=== PATIENT | female | born 1970 | race Caucasian/White ===

== ENCOUNTER 2016-09-19 08:09 | Inpatient (IN) | payer OTHER ==
[2016-09-19 08:19] VITALS: BMI 28.2
[2016-09-19] MEDS ORDERED: MORPHINE 4 MG/ML INJECTION IV ONE (08:22)
[2016-09-19] MEDS ORDERED: NS 1,000 ML IV ONE (08:22)
[2016-09-19] MEDS ORDERED: ONDANSETRON HCL 4 MG/2 ML VIAL IV ONE (08:22)
--- NOTE | 2016-09-19 08:31 | EDPRACDOC ---
- General Information Chief Complaint: Abdominal Pain Stated Complaint: N/V/ABD PAIN Time Seen by Provider: 09/19/16 08:18 Information Source: Patient Mode Of Arrival: Car Home Medications: Home Medications Ondansetron HCl [Zofran] 4 mg PO Q6H PRN #20 tab 12/10/15 Ranitidine [Zantac] 150 mg PO DAILY 09/19/16 Allergies/Adverse Reactions: Allergies Allergy/AdvReac Type Severity Reaction Status Date / Time No Known Allergies Allergy Verified 09/19/16 08:14 - History of Present Illness Onset: 3 weeks HPI: PT HAS HAD ABD PAIN FOR ABOUT 3 WEEKS. PT SAID THAT HER PCP ORDERED AN US ON 09/16. SHE WAS TOLD THAT SHE HAD GALLSTONES. PT SAID THAT PAIN AND NAUSEA HAS GOTTEN REALLY BAD FOR THE LAST DAY. PT ALSO FEELS LIKE HER ABDOMEN IS SWELLING. Pain Location: Reports: Epigastric, RUQ Pain Context: Reports: Spontaneous Pain Severity: Moderate Pain Quality: Reports: Sharp Pain Radiation: Reports: No Radiation : No (tubal) Adult Abdominal History: Reports: Abdominal Surgery Female Abdominal History: Denies: Abdominal Surgery Modifying Factors: improves with: Nothing Female Associated Signs & Symptoms: Reports: Nausea, Vomiting Oral Intake: Decreased Urinary Output: Decreased - Treatment Prior to ED Arrival Reported Medications/Treatment CHILD CARE SITTER Treated With Medication CHILD CARE SITTER YES Medications CHILD CARE SITTER (Medication/ zantac Dose/Time) ED Past Medical History - History Reviewed No Past Medical History: Yes Patient has no past medical history - Patient Medical History Surgical History: Reports: Other (BTL) - Social Medical History Smoking Status: Never smoker ETOH: None Substance Abuse: None Lives With: Spouse Lives In: Home EDM Review of Systems - Review of Systems ROS Negative Except as Marked: Yes All systems reviewed and were negative except as marked Gastrointestinal: Nausea, Pain, Vomiting - Physical Exam Constitutional: Alert (Awake), Distress Oriented to: Time, Person, Place Last recorded Vital Signs: Last Vital Signs Temp 97.6 F 09/19/16 08:15 Pulse 73 09/19/16 08:34 Resp 16 09/19/16 08:34 BP 135/72 09/19/16 08:34 Pulse Ox 100 09/19/16 08:34 Oxygen Pulse Oxygen Saturation 100 O2 Device Room Air Oxygen Flow Rate Fraction of Inspired Oxygen ( FIO2) - HEENT Head: Normal ( normocephalic) Eye Exam: Normal (PERRL, EOMI, Sclera white) Oropharynx: Normal (Pharynx:Moist without exudate,Gums-no swelling) ENT EAC: Normal TMJ: Normal Nose: No Symptoms Reported (septum midline) Neck: Normal (FROM, trachea at midline) - Respiratory/Cardiovascular Respiratory: Normal - CTA (BBS clear to auscultation without adventitious sounds ) Cardiovascular: Normal (RRR without murmur, gallop or rub) - GI Auscultation: Normal (NABS) Palpation: Normal (Soft,No rebound or guarding, non distended) Tenderness: Moderate, RUQ, Epigastric Alonso's Sign: Positive - Musculoskeletal Back: Normal (Non-Tender) Extremities: Normal (Normal tone, Pulses 2+ No cyanosis or edema, FROM) - Integumentary Skin: Normal, Warm, Dry Lymphatics: Normal (no adenopathy) - Neurologic Memory Impaired: Normal Motor Function: Normal (Normal tone, Pulses 2+ No cyanosis or edema, FROM) Cranial Nerve: Normal (CN II-X11 intact sensation, strength 5/5) Cerebellar: Normal Mood Description: Normal Thought: Coherent Perception: Normal - Re-evaluation Re-evaluation 1 Re-evaluation Time: 09:03 (STILL WITH PAIN) - Results 09/19/16 08:27 09/19/16 08:27 WBC 5.5 xk/uL (3.8-10.8) 09/19/16 08:27 RBC 4.43 xM/uL (4.20-5.40) 09/19/16 08:27 Hgb 10.6 g/dL (12.0-16.0) L 09/19/16 08:27 Hct 34.0 % (36-47) L 09/19/16 08:27 MCV 77 fL (81-99) L 09/19/16 08:27 MCH 23.8 pg (27-32) L 09/19/16 08:27 MCHC 31.1 g/dl (33-36) L 09/19/16 08:27 RDW 16.6 % (11.5-14.5) H 09/19/16 08:27 Plt Count 325 xk/uL (130-400) 09/19/16 08: MPV 8.1 fL (7.4-10.4) 09/19/16 08:27 Sodium 144 mEq/L (137-146) 09/19/16 08:27 Potassium 3.9 mEq/L (3.5-5.1) 09/19/16 08:27 Chloride 106 mEq/L (98-107) 09/19/16 08:27 Carbon Dioxide 26 mMOL/L (22-33) 09/19/16 08:27 Anion Gap 16 mEq/L (8-16) 09/19/16 08:27 BUN 13 MG/DL (7-17) 09/19/16 08:27 Creatinine 0.60 MG/DL (0.52-1.04) 09/19/16 08:27 Estimated GFR (MDRD) > 60 mL/min (>=60) 09/19/16 08:27 Glucose 97 MG/DL (70-99) 09/19/16 08:27 Calculated Osmolality 277 MOs/Kg (270-290) 09/19/16 08:27 Calcium 9.1 MG/DL (8.4-10.2) 09/19/16 08:27 Total Bilirubin 0.5 MG/DL (0.2-1.3) 09/19/16 08:27 AST 15 IU/L (14-36) 09/19/16 08:27 ALT 23 IU/L (9-52) 09/19/16 08:27 Alkaline Phosphatase 99 IU/L (38-126) 09/19/16 08:27 Total Protein 8.1 G/DL (6.3-8.2) 09/19/16 08:27 Albumin 4.5 G/DL (3.5-5.0) 09/19/16 08:27 Lipase 99 U/L (23-300) 09/19/16 08:27 Urine Test Neg (NEGATIVE) 09/19/16 08:41 Lab Results 09/19/16 09/19/16 09/19/16 08:41 08:27 08:27 WBC 5.5 RBC 4.43 Hgb 10.6 L Hct 34.0 L MCV 77 L MCH 23.8 L MCHC 31.1 L RDW 16.6 H Plt Count 325 MPV 8.1 Sodium 144 Potassium 3.9 Chloride 106 Carbon Dioxide 26 Anion Gap 16 BUN 13 Creatinine 0.60 Estimated GFR (MDRD) > 60 Glucose 97 Calculated Osmolality 277 Calcium 9.1 Total Bilirubin 0.5 AST 15 ALT 23 Alkaline Phosphatase 99 Total Protein 8.1 Albumin 4.5 Lipase 99 Urine Test Neg - Departure Yes I personally saw and evaluated the patient. Disposition: Admit IP To This Hospital Condition: Fair Final Diagnosis: Cholecystitis, acute with cholelithiasis Instructions: Acute Abdominal Pain (ED) Education/Counseling Given To: Patient, Family Member Education/Counseling Given Regarding: Diagnosis, Treatment Decision to Admit Time: 09:04 Decision to admit date: 09/19/16 Decision to admit: from ED - Physician Consulted Surgery Provider Called: Jatinder Garcia
[2016-09-19 08:40] LABS: AUTOMATED BASOPHIL 0.4 % (0-2); AUTOMATED EOSINOPHIL 0.5 % (0-5); AUTOMATED LYMPH 35.2 % (17-44); AUTOMATED MONOCYTE 8.4 % (3-10); AUTOMATED NEUTROPHIL 55.5 % (45-76); MPV 8.1 fL (7.4-10.4)
[2016-09-19 08:50] LABS: BLOOD UREA NITROGEN 13 MG/DL (7-17); CALCIUM 9.1 MG/DL (8.4-10.2); CALCULATED OSMOLALITY 277 MOs/Kg (270-290); CHLORIDE 106 mEq/L (98-107); GLUCOSE 97 MG/DL (70-99); SODIUM LEVEL 144 mEq/L (137-146); TOTAL PROTEIN 8.1 G/DL (6.3-8.2)
[2016-09-19 08:56] LABS: LEUKOCYTES/URINE NEG (NEGATIVE); NITRITE/URINE NEG (NEGATIVE); RBC/URINE 0-2 (0-5); URINE OCCULT BLOOD NEG (NEG/TRACE); WBC/URINE 0-2 (0-5)
[2016-09-19] MEDS ORDERED: HYDROmorphone 1 MG INJECTION IV ONE (08:57)
[2016-09-19] MEDS ORDERED: CEFOXITIN 1 GM in D5W 100 ML IV ONE (08:57)
[2016-09-19] MEDS ORDERED: Non-Formulary Medication ITEM (Ondansetron Hcl [Zofran] 4 MG) PO PRN (09:50)
[2016-09-19] MEDS ORDERED: ONDANSETRON HCL 4 MG ODT TAB PO PRN (10:06)
[2016-09-19] MEDS ORDERED: ACETAMINOPHEN 650 MG SUPP PR PRN (10:32)
[2016-09-19] MEDS ORDERED: ONDANSETRON HCL 4 MG/2 ML VIAL IV PRN (10:32)
[2016-09-19] MEDS ORDERED: IBUPROFEN 600 MG TAB PO PRN (10:32)
[2016-09-19] MEDS ORDERED: MAGNESIUM HYDROXIDE 30 ML BOTTLE PO PRN (10:32)
[2016-09-19] MEDS ORDERED: Albuterol/Ipratropium Neb 3 ML NEB NEB PRN (10:32)
[2016-09-19] MEDS ORDERED: Aluminum;Magnesium;Simethicone 30 ML UDC PO PRN (10:32)
[2016-09-19] MEDS ORDERED: LORAZEPAM 0.5 MG TAB PO PRN (10:32)
[2016-09-19] MEDS ORDERED: ACETAMINOPHEN 325 MG/TAB TABLET PO PRN (10:32)
[2016-09-19] MEDS ORDERED: DIPHENHYDRAMINE 25 MG CAP PO PRN (10:32)
[2016-09-19] MEDS ORDERED: PROMETHAZINE 25 MG/ML VIAL IV PRN (10:32)
[2016-09-19] MEDS ORDERED: SIMETHICONE 80 MG TAB PO PRN (10:32)
[2016-09-19] MEDS ORDERED: RANITIDINE 150 MG TAB PO SCH (11:00)
[2016-09-19] MEDS ORDERED: Vaccine Screening Complete SCH (13:00)
[2016-09-19] MEDS: OXYCODONE HCL 5 MG TABLET PO PRN (14:11)
[2016-09-19] MEDS: MORPHINE 2 MG/ML INJECTION IV PRN ×3 (15:28→22:28)
--- NOTE | 2016-09-19 16:21 | HISTPHYS ---
- Chief Complaint epigastric abdominal pain - History of Present Illness This is a 45 year old female that began having nausea, diarrhea and abdominal pain three weeks ago. She had markedly more severe pain last night, prompting her to go to the emergency department. She developed worsening nausea and vomiting. She reports that she also has increased heartburn. - Medical History Cardiac History: Denies: No Significant History, Coronary Artery Disease, Atrial Fibrillation, Hypertension, Congestive Heart Failure, Heart Attack, Cardiac Catheterization, CABG, Stress Test, Hypercholesterolemia, Internal Defibrillator, Pacemaker, Cardiomyopathy, Valvular Heart Disease, Syncope, SVT, Other Respiratory History: Denies: No Significant History, Asthma, COPD, Bronchitis, Asbestosis, Aspiration Pneumonia, Cough, Chronic Bronchitis, Pneumonia, Emphysema, Pulmonary Embolism, Other GI/ History: Denies: No Significant History, Renal Disease, Renal Failure, Renal (Kidney) Cancer, Kidney (Renal Surgery), Urinary Tract Infection, Kidney Stones, Liver Failure, Gastroesophageal Reflux, Ulcer, IBD, Diverticulosis, Pancreatitis, BPH, PMH GI Yes/No Other Musculoskeletal History: Denies: No Significant History, Arthritis, Gout, Rheumatoid Arthritis, Osteoarthritis, Other Systemic History: Denies: No Significant History, Cancer, Anemia, Diabetes, Hyperthyroidism, Hypothyroidism, HIV, Lupus, Other Neurological History: Denies: No Significant History, Cerebrovascular Accident, Seizures, Migraine, Dementia, Epilepsy, Guillian-Mosby Syndrome, Parkinson's, Metabolic encephalopathy, Multiple Sclerosis, Myasthenia Gravis, Toxic Encephalopathy, Other - Surgical History Reports: Other (bilateral tubal ligation. wrist surgery for cyst.) - Medictions/Allergies Allergies No Known Allergies Allergy (Verified 09/19/16 08:14) Current Medication List: Reviewed Home Medications Ondansetron HCl [Zofran] 4 mg PO Q6H PRN #20 tab 12/10/15 Ranitidine [Zantac] 150 mg PO DAILY 09/19/16 - Family History Denies: No Significant History, Hypertension, Diabetes, Cancer, Stroke, Cardiac Disorders, Respiratory Disorders, Renal Disease, Blood Disorders, Other - Social History Travel Outside of [place] in the Last 3 Months?: No Lives: With Family Smoking Status: Never smoker Social History: Denies: Amphetamine Use, Alcohol Use, Barbiturate Use, Benzodiazipine Use, Cocaine Use, Heroin Use, Marijuana Use, Methadone Use, MDMA (Ecstasy) Use, Substance Use Disorder - Review of Systems Yes All systems reviewed and were negative except as marked (twelve systems reviewed with the patient.) - Physical Exam Vital Signs: Initial Vitals Temperature 97.6 F 09/19/16 08:15 Pulse Rate 79 09/19/16 08:15 Respiratory Rate 18 09/19/16 08:15 Blood Pressure 130/73 09/19/16 08:15 Pulse Oxygen Saturation 100 09/19/16 08:15 Constitutional: Alert (Awake, Fully oriented. Normal and appropriate affect.Well appearing. Well nourished.), No apparent distress Oriented to: Time, Person, Place - HEENT Head: Normal (normocephalic, atraumatic.), Other (No cervical lymphadenopathy. No supraclavicular lymphadenopathy. Neck: No palpable mass, supple , trachea midline.) Eye: Normal (pupils equal, reactive to light, and round; EOMI, Sclera white) Oropharynx: Normal (Pharynx: Moist without exudate,Gums-no swelling, No oropharyngeal lesions or erythema, Mucous membranes are dry.) ENT EAC: Normal (No oropharyngeal lesions or erythema. Mucous membranes are dry. ) TMJ: Normal Nose: No Symptoms Reported (septum midline, Nares patent, without discharge or bleeding.) Respiratory: Normal - CTA (Clear to auscultation bilaterally. No wheezing, rales , rhonchi. Chest wall movements are symmetric. No use of accessory muscles to breathe.) Cardiovascular: Normal (RRR , Normal S1, S2. No murmurs, rubs, or gallops. PMI non-displaced. Carotids: no carotid bruits. No bradycardia or tachycardia. DP pulses 2+ bilaterally.) - GI Auscultation: Normal (normal active sounds) Palpation: Normal (Soft,non distended,nontender. No hepatosplenomegaly.) Tenderness: Moderate, RUQ, Epigastric Alonso's Sign: Negative - Exam Deferred: Yes - Musculoskeletal Back: Normal (Non-Tender) Extremities: Normal (Normal tone, DP pulses 2+ bilaterally, No cyanosis or edema bilaterally, FROM bilaterally.) - Integumentary Skin: Normal (Clean, dry, and intact. No rashes. No lesions.) Lymphatics: Normal (No cervical lymphadenopathy. No supraclavicular lymphadenopathy.) - Neurologic Memory Impaired: Normal Motor Function: Normal (Motor 5/5 throughout.Normal tone, Pulses 2+ No cyanosis or edema, FROM) Cranial Nerve: Normal (CN II-XII intact sensation, strength 5/5) Cerebellar: Normal (Babinski: toes downgoing bilaterally. Intact Finger to nose. Sensory grossly intact to light touch. Intact rapid alternating movements bilaterally. No pronator drift.) Mood Description: Normal (Fully oriented. Normal and appropriate affect.) Perception: Normal (Normal and appropriate affect.) - Lab Results Intake & Output 09/19/16 09/19/16 09/19/16 07:59 15:59 23:59 Intake Total 1100 Output Total 10 Balance 1090 Patient's weight 79.379 kg 09/19/16 08:27 09/19/16 08:27 - Assessment/Plan (1) Cholelithiasis with chronic cholecystitis K80.10 - CALCULUS OF GALLBLADDER W CHRONIC CHOLECYST W/O OBSTRUCTION Chronic Present on Admission: Yes gallbladder Comment: We will plan for laparoscopic cholecystectomy with intraoperative cholangiogram , possible open incision. The indications, benefits and risks associated with the operation were discussed with the patient and the patient's family. All questions were answered. Informed consent was obtained. Case Care Discussed with: Patient, Family
[2016-09-19] MEDS: LR 1,000 ML IV SCH (17:06)
[2016-09-20] MEDS: MORPHINE 2 MG/ML INJECTION IV PRN ×2 (03:29→13:53)
[2016-09-20] MEDS ORDERED: CEFAZOLIN 1 GM VIAL IV ONE (06:00)
[2016-09-20] MEDS: LR 1,000 ML IV SCH ×2 (06:30→12:15)
[2016-09-20] MEDS ORDERED: CEFAZOLIN 1 GM VIAL ONE (06:51)
[2016-09-20] MEDS ORDERED: ISOVUE-300 (61%) 50 ML ONE (06:58)
[2016-09-20] MEDS ORDERED: BUPIVACAINE 0.5% 30 ML VIAL ONE (06:58)
--- NOTE | 2016-09-20 07:15 | HIM.ANES ---
Anesthesia Evaluation & Plan Diagnoses: acute cholecystitis Consented Procedure: lap dangelo - Focused Review of Systems No Past Medical History: Yes Patient has no past medical history Now: No (tubal) Cardiac History: No: Hx Hypertension, Hx Heart Attack, Hx Cardiac Catheterization, Hx Pacemaker, Hx Congestive Heart Failure, Hx Coronary Artery Bypass Graft, Hx of SVT HEENT: No: Loose/Decaying Teeth Respiratory: No: Hx Asthma, Hx Emphysema, Hx Chronic Obstructive Pulmonary Disease (COPD) , Hx Pneumonia Gastrointestinal: Yes: Hx Gastroesophageal Reflux Disease No: Hx Pancreatitis, Hx Diverticulosis Genitourinary: No: Hx Renal Disease, Hx Renal Failure Neurological/Musculoskeletal: No: HX Cerebrovascular Accident, Hx Dementia, Hx Seizures, Hx Syncope Psychological: No Hx Depression Endocrine: No: Hx Hyperthyroidism, Hx Hypothyroidism Blood/Autoimmune: No: Hx Anemia, Hx AIDS, Hx Hepatitis (type) Smoking Status: Never smoker Past Social History: Denies: Amphetamine Use, Alcohol Use, Barbiturate Use, Benzodiazipine Use, Cocaine Use, Heroin Use, Marijuana Use, Methadone Use, MDMA (Ecstasy) Use, Substance Use Disorder Alcohol use: None Surgical History: Yes: Other (bilateral tubal ligation. wrist surgery for cyst. ) No: CABG - Focused Physical Exam NPO since: 09/20/2016 00:00 Mallampati: Class II Thyromental Distance: Greater than 3 Neck: Full Range of Motion Dental: Normal - no significant findings Cardiovascular/Chest: Normal Respiratory: Lungs clear Any problems with anesthesia, including nausea and vomiting?: No Any relatives with a history of Malignant Hyperthermia?: No Does patient have a history of Malignant Hyperthermia?: No Beta Quan given (if appropriate): N/A Does the patient have a history of Motion Sickness-: No Other: Problem List Problem Status Onset Cholecystitis, acute with cholelithiasis Acute Cholelithiasis with chronic cholecystitis Chronic PT/PTT/INR/ Urine Test Neg (NEGATIVE) 09/19/16 08:41 Allergies Allergy/AdvReac Type Severity Reaction Status Date / Time No Known Allergies Allergy Verified 09/19/16 08:14 Home Medications Medication Instructions Recorded Last Taken Type Ondansetron HCl [Zofran] 4 mg PO Q6H PRN #20 tab 12/10/15 09/18/16 Rx Ranitidine [Zantac] 150 mg PO DAILY 09/19/16 09/17/16 History Vital Signs Temperature 97.9 F 09/20/16 05:52 Pulse Rate 75 09/20/16 05:52 Respiratory Rate 16 09/20/16 05:52 Blood Pressure 134/76 09/20/16 05:52 Pulse Oxygen Saturation 98 09/20/16 05:52 METS - Level of Activity: Climbing stairs(1 flight),walking level ground, running short distance - Anesthetic Plan Anesthesia Type: General ASA Class: 2 -: I have examined this patient and reviewed the medical record. The patient has been assessed prior to anesthesia. Risks and benefits of anesthesia and anesthetic technique options have been discussed and all questions answered. The patient accepts the risk and desires me to proceed with the planned anesthetic.
[2016-09-20] MEDS ORDERED: LABETALOL 20 MG/4 ML SYRINGE IV PRN (07:16)
[2016-09-20] MEDS ORDERED: MEPERIDINE 25 MG/ML TUBEX IV PRN (07:16)
[2016-09-20] MEDS ORDERED: FENTANYL 100 MCG/2 ML VIAL IV PRN ×2 (07:16)
[2016-09-20] MEDS ORDERED: ONDANSETRON HCL 4 MG ODT TAB PO PRN (07:16)
[2016-09-20] MEDS ORDERED: ONDANSETRON HCL 4 MG/2 ML VIAL IV PRN (07:16)
[2016-09-20] MEDS ORDERED: HYDROmorphone 1 MG INJECTION IV PRN ×2 (07:16)
[2016-09-20] MEDS ORDERED: hydrALAZINE 20 MG/ML VIAL IV PRN (07:16)
[2016-09-20] MEDS ORDERED: FLU VACCINE (Afluria) 0.5 ML DOSE IM ONE (08:00)
--- NOTE | 2016-09-20 08:32 | HIMOPRPT ---
DATE OF PROCEDURE: 09/20/16 Preoperative diagnosis: Cholelithiasis with chronic cholecystitis Postoperative diagnosis: Cholelithiasis with chronic cholecystitis, final pathology pending Procedure: Intraoperative cholangiography under fluoroscopic guidance Surgeon: Jatinder Garcia DO Anesthesia: General ANESTHESIOLOGIST: Dr. Kemi Bloom MD Blood loss: None Packings and drains: None Complications: None Operative findings and technique: During the course of laparoscopic cholecystectomy by Dr. Garcia, intraoperative cholangiography was performed under fluoroscopic guidance. Fluoroscopic images reveal a cholangiocatheter on the infundibulum of the gallbladder. Contrast dye is noted to fill the infundibulum. Contrast dye is noted to proceed down a spiraling cystic duct into a normal caliber common bile duct. Contrast dye flows antegrade down the common bile duct and into the duodenum. Retrograde filling of the hepatic radicles is noted as well. There is no evidence of common bile duct obstruction or lesion. Impression: Normal intraoperative cholangiography without any evidence of retained common bile duct stone, stricture, or other lesion.
--- NOTE | 2016-09-20 08:32 | HIMOPRPT ---
DATE OF PROCEDURE: 09/20/16 PREOPERATIVE DIAGNOSIS: Chronic cholecystitis with cholelithiasis. POSTOPERATIVE DIAGNOSIS: Chronic cholecystitis with cholelithiasis. PROCEDURE: Laparoscopic cholecystectomy with intraoperative cholangiogram SURGEON: Jatinder Garcia DO. ANESTHESIA: General endotracheal. ANESTHESIOLOGIST: Dr. Kemi Bloom MD SPECIMEN: Gallbladder and contents. SPONGE COUNT: Correct. PACKINGS AND DRAINS: None. PATIENT CONDITION: Stable. ESTIMATED BLOOD LOSS: 5mL INDICATIONS: This is a 45-year-old female with right upper quadrant and epigastric abdominal pain. Ultrasound demonstrated gallstones. It was recommend to this patient, laparoscopic cholecystectomy with intraoperative cholangiogram , possible open incision. The risks associated with operation were discussed with the patient and the patient's family in detail. These risks include, but not limited to bleeding, infection, port site herniation, injury to intra- abdominal blood vessels, injury to small and large intestine, deep vein thrombosis, resultant pulmonary embolism, perioperative cardiac and respiratory morbidity and mortality, injury to common bile duct resulting in need for reoperation, injury to intrahepatic bile duct resulting in need for percutaneous drainage, possible endoscopic retrograde cholangiopancreatography. All questions were answered and informed consent was obtained. FINDINGS: Gallbladder was slightly distended. Moderate omental adhesions of the gallbladder. On intraoperative cholangiogram, no evidence of retained stone or obstruction. OPERATIVE AND TECHNIQUE: With consent, the patient was taken to the operative suite at [facility] and placed in supine position. General anesthesia was induced. Having successful completion of this, the anterior abdomen was sterilely prepped and draped in usual fashion. All members of surgical team were in agreement of correct patient and correct procedure. Curvilinear incision was made inferior to the umbilicus, carried down to the fascial layers entering the peritoneal cavity under direct visualization. It was insufflated to 15 mmHg and kept at or below this pressure at all times during the course of surgery. A total of 3 accessory ports were placed in the right upper quadrant each 5 mm in size, each placed under laparoscopic visualization. Gallbladder was grasped and elevated. Omental adhesions were removed utilizing gentle blunt dissection staying very close to the gallbladder. Cystic duct and cystic artery were circumferentially isolated. Gallbladder cystic duct junction was clearly visualized. Intraoperative cholangiogram was performed with Foster cholangiocatheter, findings as described above. Once again, the cystic duct circumferentially isolated. Three metallic clips were placed across then transected, leaving 2 on the stump and 1 on the specimen. Cystic artery was circumferentially isolated. Three metallic placed across were then transected, leaving 2 on the stump and 1 on the specimen. Small bridging vein to the cystic duct was identified, this was clipped. Hemostasis was excellent. Gallbladder was removed from liver bed utilizing electrocautery, placed in Endobag, removed the body and passed off as specimen. Right upper quadrant was vigorously irrigated and aspirated dry. Clips were visualized in place. No evidence of arterial or venous bleeding. No evidence of bile duct leakage. Accessory port sites were hemostatic on removal. CO2 gas was allowed to escape in the peritoneal cavity. Fascia was closed with [id number] 0 Vicryl suture. Skin was closed with 4-0 Monocryl subcuticular stitch. After infiltration of anesthetic, Dermabond was applied. Sterile occlusive dressing was applied over this. Anesthesia was reversed. Mrs. Stone was taken to recovery, having tolerated the procedure well.
[2016-09-20] MEDS ORDERED: PROMETHAZINE 25 MG/ML VIAL ONE (09:10)
[2016-09-20] MEDS ORDERED: FENTANYL 100 MCG/2 ML VIAL ONE (09:25)
[2016-09-20] MEDS: OXYCODONE HCL 5 MG TABLET PO PRN ×2 (11:14→18:31)
--- NOTE | 2016-09-20 11:30 | DIRPT ---
CLINICAL DATA: 45-year-old female with a history of cholelithiasis EXAM: INTRAOPERATIVE CHOLANGIOGRAM TECHNIQUE: Cholangiographic images from the C-arm fluoroscopic device were submitted for interpretation post-operatively. Please see the procedural report for the amount of contrast and the fluoroscopy time utilized. COMPARISON: Ultrasound 09/16/2016 FINDINGS: Surgical instruments project over the upper abdomen. There is cannulation of the cystic duct/gallbladder neck, with antegrade infusion of contrast. Caliber of the extrahepatic ductal system within normal limits. No large filling defect identified. Free flow of contrast across the ampulla. IMPRESSION: Intraoperative cholangiogram demonstrates extrahepatic biliary ducts of unremarkable caliber, with no large filling defect identified. Free flow of contrast across the ampulla. Please refer to the dictated operative report for full details of intraoperative findings and procedure Signed, Genaro Caro DO [facility] Electronically Signed By: Genaro Caro D.O. On: 09/20/2016 11:27
--- NOTE | 2016-09-20 12:44 | SC.ANESPOS ---
Post-Anesthesia Note LOC: Fully Awake Post-Anesthesia Assessment: Awake, Returned to Baseline, Hemodynamically Stable , Pain Control Adequate Phase I & II Recovery Complete: Yes Apparent Anesthesia Complication: No : N PACU Discharge Time: 10:20 - Vital Signs Blood Pressure: 145/79 Pulse: 64 Resp Rate: 15 O2 Sat: 100 Temp: 97.6 F - Comments Anesthesia Discharge Time Report Time 10:20
[2016-09-20 18:16] VITALS: BP 144/69; PULSE 79; TEMP 98.5
--- NOTE | 2016-09-20 19:44 | PCM.DCS92 ---
- Final/Secondary Discharge Diagnosis (1) Cholelithiasis with chronic cholecystitis Chronic K80.10 - CALCULUS OF GALLBLADDER W CHRONIC CHOLECYST W/O OBSTRUCTION Present on Admission: Yes gallbladder Discharge Disposition: Home Discharge Condition: Improved Cognitive Discharge Status: Unimpaired Fuctional Discharge Status: Independent Physician Follow up/Referrals: Mare Todd NP [Primary Care Provider] - One Week Jatinder Garcia DO [Staff Physician] - One Week New Prescriptions: Oxycodone Immediate Release [Oxy-Ir] 5 mg PO Q6H PRN #40 tab PRN Reason: Pain Promethazine [Phenergan] 25 mg PO Q4H PRN #30 tab PRN Reason: Nausea/Vomiting Diet at Discharge: As Tolerated, Regular Activity: No Heavy Lifting, No Driving (No driving while taking the prescription analgesics.) Call Office For: Worsening Symptoms, Wound is Draining Pus, Fever over 101 F, Wound is Painful, Wound is Red, Pain Uncontrolled By Meds, Other (See Details) ( Chest pain or difficulty breathing) Discontinue use of:: Alcohol, All Illegal Substances, All Types of Tobacco - DC Summary Notes Hospital Course Note:: Discharge summary on patient named ESPERANZA BEASLEY admitted to [facility] on 09/19/16 by Jatinder Garcia DO. The patient was diagnosed with cholecystitis with cholelithiasis. She underwent laparoscopic cholecystectomy. Please see operative report for full details. Postoperatively , her diet and activity were slowly advanced, which she was able to tolerate. She was stable for discharge. Date of discharge is 09/20/16. Discharge condition: stable Final discharge diagnosis: cholecystitis with cholelithiasis Wound Care Surgical Site: Yes May Shower Starting:: 09/21/16 Remove Clear Dressing In How Many Days?: 7 Remove Gauze Dressing in How Many Days?: 7 Ability To Perform Care (if applicable): Yes - Physical Exam Vital Signs: Initial Vitals Temperature 97.6 F 09/19/16 08:15 Pulse Rate 79 09/19/16 08:15 Respiratory Rate 18 09/19/16 08:15 Blood Pressure 130/73 09/19/16 08:15 Pulse Oxygen Saturation 100 09/19/16 08:15
== END 2016-09-20 20:52 | disposition home or self-care (01) | DRG 419 ==
LOC: ED 08:09 → MASU 09:47
PROVIDERS: ADMIT Surgery; ATTEND Surgery
PROC: 0FT44ZZ Resection of Gallbladder, Percutaneous Endoscopic Approach (ICD-10-PCS; principal; 2016-09-19)
PROC: BF131ZZ Fluoroscopy of Gallbladder and Bile Ducts using Low Osmolar Contrast (ICD-10-PCS; 2016-09-19)
DX: K80.10 Calculus of gallbladder with chronic cholecystitis without obstruction (principal); Z23 Encounter for immunization
CPT/HCPCS: 36415; 74300; 80053; 81001; 81025; 83690; 85025; 90471; 90656; 96361; 96365; 96375; 99285; G0237; J0690; J0694; J1170; J2270; J2405; J2550; J3010; J3490; J7060